=== PATIENT | female | born 1960 ===

== ENCOUNTER 2019-10-01 07:37 | Inpatient (IN) | payer OTHER ==
[~2019-10-01] VITALS: Ht 162.6 cm; Wt 128.8 kg
[~2019-10-01 07:37] MED LIST: JENTADUETO 2.51 EAC1 PO; TARKA ER 2-2401 EACH PO; TOPROL XL50 M1 PO; VITAMIN D10000 UNIT PO
[2019-10-13] MEDS ORDERED: GAS RELIEF125 M1 PO (15:40)
[2019-10-13] MEDS ORDERED: TYLENOL ARTHRI650 MG PO (15:40)
[2019-10-13] MEDS ORDERED: OMEPRAZOLE20 MG PO (15:40)
[2019-10-13] MEDS ORDERED: NEURONTIN300 MG PO (15:40)
== END 2019-10-13 15:59 | disposition home or self-care (01) | DRG 330 ==
LOC: O/R 10-05 06:15 → RECOVERY 10-05 12:00 → SURH 10-05 16:54
PROVIDERS: ADMIT Surgery
PROC: 07BC0ZX Excision of Pelvis Lymphatic, Open Approach, Diagnostic (ICD-10-PCS; 2019-10-05)
PROC: 0DBU0ZZ Excision of Omentum, Open Approach (ICD-10-PCS; 2019-10-05)
PROC: 0DJD8ZZ Inspection of Lower Intestinal Tract, Via Natural or Artificial Opening Endoscopic (ICD-10-PCS; 2019-10-05)
PROC: 4A033R1 Measurement of Arterial Saturation, Peripheral, Percutaneous Approach (ICD-10-PCS; 2019-10-05)
PROC: 4A12X4Z Monitoring of Cardiac Electrical Activity, External Approach (ICD-10-PCS; 2019-10-05)
PROC: 5A09457 Assistance with Respiratory Ventilation, 24-96 Consecutive Hours, Continuous Positive Airway Pressure (ICD-10-PCS; 2019-10-05)
PROC: 3E0F7GC Introduction of Other Therapeutic Substance into Respiratory Tract, Via Natural or Artificial Opening (ICD-10-PCS; 2019-10-05)
PROC: 0DTN0ZZ Resection of Sigmoid Colon, Open Approach (ICD-10-PCS; principal; 2019-10-05 12:00)
DX: C18.7 Malignant neoplasm of sigmoid colon (principal); K92.1 Melena; Z99.11 Dependence on respirator [ventilator] status; D62 Acute posthemorrhagic anemia; E44.0 Moderate protein-calorie malnutrition; K63.89 Other specified diseases of intestine; K66.0 Peritoneal adhesions (postprocedural) (postinfection); I11.9 Hypertensive heart disease without heart failure; G47.33 Obstructive sleep apnea (adult) (pediatric); E11.9 Type 2 diabetes mellitus without complications; Z79.4 Long term (current) use of insulin

== ENCOUNTER 2019-10-04 08:06 | Day surgery (SDC) | payer OTHER | END 2019-10-04 11:45 | disposition home or self-care (01) | LOC: AMB-ENDOS 08:06 → ADM 10-05 08:45 | DX: C18.7 Malignant neoplasm of sigmoid colon (principal); K63.5 Polyp of colon ==